=== PATIENT | male | born 1955 | race Caucasian/White ===

== ENCOUNTER → 2023-06-26 15:53 | Outpatient (REF) | payer MEDICARE, OTHER, SELFPAY | LOC: HWRAD 15:53 | PROVIDERS: ATTENDING PHYSICIAN Nurse Practitioner Family | DX: M54.50 Low back pain, unspecified (principal) | CPT/HCPCS: 72110 ==

== ENCOUNTER → 2024-06-15 14:09 | Outpatient (REF) | payer MEDICARE, SELFPAY | LOC: RAD 14:09 | PROVIDERS: ATTENDING PHYSICIAN Orthopaedic Surgery; FAMILY PHYSICIAN Internal Medicine | DX: M25.512 Pain in left shoulder (principal); M12.812 Other specific arthropathies, not elsewhere classified, left shoulder | CPT/HCPCS: 23350; 73040; 73201; Q9967 ==

== ENCOUNTER 2024-07-24 06:11 | Day surgery (SDC) | payer MEDICARE, SELFPAY ==
[2024-07-24] VITALS (9 sets, daily range): BP systolic 106–161; BP diastolic 62–81; BMI 31.2
[2024-07-24] MEDS: TYLENOL 1000 MG PO (07:21)
[2024-07-24] MEDS: CELEBREX 200 MG PO (07:21)
[2024-07-24] MEDS: NORMOSOL-R/PLASMALYTE-A 1000 IV (07:22)
== END 2024-07-24 11:35 | disposition home or self-care (01) ==
LOC: SDS 06:11
PROVIDERS: ATTENDING PHYSICIAN Specialist
DX: M75.42 Impingement syndrome of left shoulder (principal)
CPT/HCPCS: 29827